=== PATIENT | female | born 1980 | race Caucasian/White ===

== ENCOUNTER 2024-10-18 16:58 | Emergency (ER) | payer OTHER, SELFPAY ==
[2024-10-18 17:03] VITALS: BP 128/89
[2024-10-18 17:33] LABS: % Basophils 0.3 % (0-2); % Eosinophils 1.8 % (0-6); % Immature Granulocytes 0.2 % (0-0.5); % Lymphocytes 23.7 % (20.5-51.1); % Monocytes 4.6 % (1.7-9.3); % Neutrophils 69.4 % (42.2-75.2); Absolute Eosinophils 0.2 10^3/uL (0-0.7); Absolute Lymphocytes 2.3 10^3/uL (1.2-3.4); Absolute Monocytes 0.5 10^3/uL (0.1-0.6); Absolute Neutrophils 6.8 10^3/uL (1.4-6.5); Hematocrit 38.3 % (37.0-47.0); Hemoglobin 13.5 g/dL (12.0-16.0); Mean Corp Hgb Conc. 35.2 g/dL (33.0-37.0); Mean Corpuscular Hgb 29.5 pg (27.0-31.0); Mean Corpuscular Volume 83.6 fL (81.0-99.0); Mean Platelet Volume 10.8 fL (7.4-10.4); Nucleated Red Blood Cells % 0 %; Platelet Count 228 10^3/uL (130-400); Red Blood Cell Count 4.58 10^6/uL (4.20-5.40); Red Cell Dist. Width 13.1 % (11.5-14.5); White Blood Cell Count 9.8 10^3/uL (4.8-10.8)
[2024-10-18 17:41] LABS: HCG, Serum Qualitative Screen Negative
[2024-10-18 17:46] LABS: ALT (SGPT) 20 U/L (0-35); AST (SGOT) 21 U/L (14-36); Albumin 4.5 g/dl (3.5-5.0); Alkaline Phosphatase 86 U/L (38-126); Blood Urea Nitrogen 18 mg/dl (7-17); Calcium 9.3 mg/dl (8.4-10.2); Carbon Dioxide 19 mmol/L (22-30); Chloride 110 mmol/L (98-107); Glucose 82 mg/dl (70-99); Potassium 3.7 mmol/L (3.5-5.1); Sodium 139 mmol/L (135-145); Total Bilirubin 0.7 mg/dl (0.2-1.3); Total Protein 7.5 g/dl (6.3-8.2); eGFR > 60.00
[2024-10-18 17:53] VITALS: BP 152/76
[2024-10-18 17:55] LABS: Troponin I < 0.012 ng/ml
[2024-10-18 17:56] VITALS: BMI 42.9
[2024-10-18 18:00] VITALS: BP 108/77
--- NOTE | 2024-10-18 18:14 | ED.GENMED ---
History of Present Illness
General
Chief Complaint: Heart Rate Problem
Source: patient
Exam Limitations: none
Time Seen by Provider: 10/18/24 18:14
Nursing documentation reviewed up to this point in time: agreed with
History of Present Illness
History of Present Illness:
44-year-old female with history of cholecystectomy, sleep apnea, states while standing, cooking about 3 hours ago developed sudden onset palpitations, lightheadedness, felt SOB, lasted 10 minutes, none since. Denies chest pain. Feels 100% back to
normal now.
She is on day 7 of 10 of Amoxicillin for strep throat
Past History
Past History
ED Past Medical History: Valvular disease ([facility] followed by logistics and planning manager)
ED Past Surgical History: Cholecystectomy, , Gynecological and Orthopedic
Social History
Tobacco: Non-smoker
Alcohol: None
Personal:
Living: with family
Employment: Not employed
Review of Systems
Review of Systems
Allergies reviewed?: Yes
All Other Systems: ROS reviewed and negative except as documented in HPI and ROS
Constitutional: Denies fever or fatigue
Respiratory: Denies trouble breathing
Cardiac: Reports palpitations; Denies chest pain, diaphoresis or syncope
ABD/GI: Denies abdominal pain, nausea, vomiting, diarrhea or anorexia
: Denies dysuria, frequency or difficulty voiding
Musculoskeletal: Reports no symptoms
Skin: Reports no symptoms
Neurological: Denies dizzy, headache, weakness or numbness
Phy Exam
Physical Exam
Physical Exam:
GENERAL: No acute distress. A&Ox3.
CONSTITUTIONAL: Afebrile.
EYES: clear, conjunctivae normal
ENMT: moist mucus membranes, Pharynx nl
RESPIRATORY: Regular respirations, nonlabored, lungs clear.
CARDIOVASCULAR: Regular rate and rhythm, no murmurs, no rubs.
GI: Soft, nontender, normal BS
MUSCULOSKELETAL: Moves with ease. Well perfused.
SKIN: Warm, dry, pink
PSYCH: Normal mood and affect. Well kept, interactive and appropriate
NEUROLOGIC: Awake, alert and oriented. No focal neurological deficits
Course
Orders/Labs/Results
Orders:
Orders
10/18/24 17:07
Electrocardiogram (*1) Urgent
Reason for Study: Chest Pain
Cardiac Monitoring- Treatment ONCE
EKG- Treatment ONCE
IV Insert/Care/Rem.- Treatment PRN
Test Result ONCE
O2 Therapy [RESP] Urgent
Titrate/Wean O2 to maintain O2 sat greater than (%): 90
Special Instructions: Maintain sats >/=90%
Pulse Ox/spot Check [RESP] Urgent
Quantity: 1
Special Instructions: ON ROOM AIR
10/18/24 17:23
Complete Blood Count/With Diff Urgent
TSH Reflex To Free T4 Urgent
Comment: ADDON
Troponin I Urgent
10/18/24 17:24
Comprehensive Metabolic Panel Urgent
HCG, Serum Qualitative Screen Urgent
Comment: Notify provider if positive test present
10/18/24 17:39
Add On- LAB Urgent
Tests Added?: TSH w/ reflex to free t4
Abnormal Lab Results
10/18/24 10/18/24
17:23 17:24
MPV 10.8 H fL
(7.4-10.4)
Absolute Neuts (auto) 6.8 H 10^3/uL
(1.4-6.5)
Chloride 110 H mmol/L
(98-107)
Carbon Dioxide 19 L mmol/L
(22-30)
BUN 18 H mg/dl
(7-17)
10/18/24 17:23
10/18/24 17:24
Vital Signs
Initial and Last Documented VS:
Initial Vital Signs
Temp Pulse Resp BP Pulse Ox
97.8 F 87 18 128/89 98
10/18/24 17:03 10/18/24 17:03 10/18/24 17:03 10/18/24 17:03 10/18/24 17:03
Last Documented Vital Signs
Temp Pulse Resp BP Pulse Ox
97.8 F 83 19 125/72 97
10/18/24 17:03 10/18/24 19:24 10/18/24 19:24 10/18/24 19:23 10/18/24 19:24
MDM/Problems Addressed
Differential Diagnosis Includes:
PVCs, PACs, side effect from Zepbound, SVT
MDM/Problems Addressed:
44-year-old female with history of cholecystectomy, sleep apnea, mitral valve prolapse, states while standing, cooking about 3 hours ago developed sudden onset palpitations, lightheadedness, felt SOB, lasted 10 minutes, none since. Denies chest
pain. Feels 100% back to normal now.
She is on day 7 of 10 of Amoxicillin for strep throat
Patient experienced palpitations about 4 years ago, had a Holter monitor which was normal, had a calcium study which was normal, she is followed by Dr. Parra logistics and planning manager at [facility] and has a follow-up appointment on November 22.
Has been on Zepbound since 04/2024, weekly injections, last injection was yesterday
Afebrile, NAD
EKG NSR
6:15 PM:
CBC normal
CMP normal
Troponin normal
hCG negative
TSH normal
No further episodes of palpitations, tachycardia on monitor during stay
She will return if symptoms recur and last more than 10 minutes or she has SOB, feels faint, diaphoretic, nauseous
Stable for discharge
She will call her logistics and planning manager and see if her November 21 appt can be moved up
*Pulse Oximetry
Patient hypoxic: no
Comment: pulse ox 98% RA no hypoxia
*EKG
EKG Intrepretation Date: 10/18/24
Interpretation: normal
Heart Rate: 82
Rate: normal
Rhythm: sinus
[place]: normal axis
Interval: normal interval
QRS Pattern: normal QRS
Ischemia: no ischemia
*Production Team Member Interpretation
Rate: normal
Interpretation: normal
Heart Rate: 88
Rhythm: sinus
*Critical Care Note
Total Time (30-74mins, 75-104mins- exclusive of procedures): Not Applicable
ED Attending Note
-
Portions of this chart may have been created with voice recognition software.� Occasional wrong word or��sound alike� substitutions may have occurred due to the inherent limitations of voice recognition software.
Discharge Plan
Departure
Patient Disposition: Home (Routine Discharge)
Date of Disposition: 10/18/24
Time of Disposition: 19:17
Patient with high blood pressure during this ER visit?: No
Condition: Good
Discharge Problem:
Rapid palpitations
Instructions: Tachycardia, Palpitations (DC)
Referrals:
Rosy Dumont MD [Family Provider, Internal Medicine]
Activity Restrictions/Additional Instructions:
As we discussed, your workup here today shows nothing worrisome
Drink plenty of fluids
Call your logistics and planning manager on Monday morning and see if you can move your appointment up
Return here over the weekend if rapid heartbeat recurs or you feel worse in any way
Avoid caffeine, chocolate
Interventions
Interventions:
*Risk Screen - Suicide Last Done: 10/18/24 17:03
*General Assessment Last Done: 10/18/24 17:56
*Neglect/Abuse Screening Last Done: 10/18/24 17:03
*ED- Fall Risk Assessment Last Done: 10/18/24 17:56
*ED COVID-19 Vaccine History Last Done: 10/18/24 17:56
*Nursing Disposition Last Done: 10/18/24 19:31
ED- Cardiac Assessment Last Done: 10/18/24 17:56
ED- Pulmonary Assessment Last Done: 10/18/24 17:56
Discharge Date and Time
Discharge Date/Time: 10/18/24 19:33
Print Language: CHINESE
[2024-10-18 18:26] LABS: TSH Reflex To Free T4 1.08 uIU/ml (0.47-4.68)
[2024-10-18 19:23] VITALS: BP 125/72
== END 2024-10-18 19:33 | disposition home or self-care (01) ==
LOC: EMR 16:58
PROVIDERS: EMERGENCY PHYSICIAN Emergency Medicine; FAMILY PHYSICIAN Internal Medicine
DX: R00.2 Palpitations (principal); G47.30 Sleep apnea, unspecified; Z90.49 Acquired absence of other specified parts of digestive tract
CPT/HCPCS: 99283; 80053; 84443; 84484; 84703; 85025; 93005